=== PATIENT | female | born 1960 | race Caucasian/White ===

== ENCOUNTER → 2016-12-12 | Outpatient (CLI) | payer OTHER ==
[~2016-12-12] MED LIST: ASCA500 PO; B-CO1CAP3 PO; BIOTCAP2 PO; CALC-478 PO; CLR10 PO; GLUCTAB7 PO; MULT-506 PO; PSEU30TA20 PO; TURM1CAP4 PO
--- NOTE | 2016-12-12 09:29 | DIAGNOSTIC IMAGING REPORT ---
RIGHT FOOT MIN 3 VIEWS CLINICAL HISTORY: Right foot cyst. Right foot pain. COMPARISON: None. TECHNIQUE: Standing AP, oblique and lateral radiographs of the right foot were obtained. A BB was placed at site of cyst. FINDINGS: The tarsometatarsal joints are intact. No fracture or suspicious lesion is identified on this examination. No erosions are identified. There is no bony destruction. There is an equivocal 6 mm round density which could reflect the palpable abnormality. This is suboptimally assessed by radiography. IMPRESSION: No osseous lesion identified. No bony destruction. Equivocal 6 mm round density at site of palpable abnormality. This could reflect normal soft tissue or the palpable abnormality which is difficult to assess by radiography. Electronically signed by: Feliz Barraza M.D. 12/12/2016 9:27 AM Dictated Date/Time: 12/12/2016 9:15 AM
== END | disposition home or self-care (01) ==
LOC: C.RDSM 11:35
PROVIDERS: ATTEND Podiatrist
DX: M79.671 Pain in right foot (principal)

== ENCOUNTER → 2016-12-28 | Day surgery (SDC) | payer OTHER ==
[2016-12-14 13:32] VITALS: Ht 175.3 cm; Wt 68.2 kg
[~2016-12-28] VITALS: Ht 175.3 cm; Wt 68.2 kg
[~2016-12-28] MED LIST changes: +ATROPINE SULFATE 0.1 MG/ML 5ML SYR IV PRN; +BUPIVACAINE 0.5 % 5 MG/1 ML MPF 30ML VIAL ONE; +CLINDAMYCIN PHOS 150 MG/ML 2 ML VIAL IV SCH; +DEXAMETHASONE SOD INJ 4 MG/ML VIAL ONE; +EpHEDrine SULFATE INJ 50 MG/ML AMP IV PRN; +FENTANYL CITRATE INJ 50 MCG/1 ML 2 ML VIAL IV PRN; +FENTANYL CITRATE INJ 50 MCG/1 ML 2 ML VIAL ONE; +FLUMAZENIL 0.1 MG/1 ML 10 ML VIAL IV PRN; +LABETALOL HCL IV 5 MG/ML 20ML IV PRN; +LACTATED RINGER'S 1000ML 1,000 ML IV SCH; +LIDOCAINE HCL 1% 20 ML VIAL ONE; +LIDOCAINE HCL 2% 2 ML VIAL (20MG/ML) ONE; +MEPERIDINE HCL 25 MG/ML CARP IV PRN; +METOCLOPRAMIDE HCL INJ 5 MG/ML 2 ML VIAL IV PRN; +MIDAZOLAM HCL 1 MG/ML 2ML VIAL ONE; +NALOXONE HCL 0.4 MG/1 ML VIAL/CARP IV PRN; +ONDANSETRON INJ 2 MG/ML 2 ML VIAL IV PRN; +ONDANSETRON INJ 2 MG/ML 2 ML VIAL ONE; +PHENYLEPHRINE 100MCG/ML 5ML SYR IV PRN; +PROPOFOL IV EMULSION 10 MG/ML 20 ML VIAL IV ONE; +SODIUM CHLORIDE 0.9% 1000ML 1,000 ML IV SCH
--- NOTE | 2016-12-28 11:20 | History & Physical Bridge - [place] ---
H&P Re-Evaluation Bridge Note: I have examined the patient, reviewed the History & Physical and in the interval since the performance of the History & Physical I have noted the following changes of clinical significance: No changes noted right 4th digit lesion excision and arthroplasty
--- NOTE | 2016-12-28 12:28 | Discharge Instructions-SurgCtr ---
Discharge Instructions Date of Service Dec 28, 2016. Visit Reason for Visit: Right Foot Ganglion Cyst, Hammertoes Discharge Discharge Diagnosis / Problem: right 4th digit lesion, hammertoe Discharge Goals Goal(s): Decrease discomfort, Improve function Activity Recommendations Activity Limitations: as noted below (limited weightbearing using the surgical shoe until follow up) Lifting Limitations: no more than 5 pounds Exercise/Sports Limitations: none Shower/Bathe: keep incision dry Driving or Machine Use: after follow up appointment Weightbearing Status: Right weightbearing (as tolerated) Anesthesia . Post Anesthesia Instructions: If you have had General Anesthesia or IV Sedation: * Do not drive today. * Resume driving when surgeon permits. * Do not make important decisions or sign legal documents today. * Call surgeon for: 1. Temperature elevations greater than 101 degrees F. 2. Uncontrollable pain. 3. Excessive bleeding. 4. Persistent nausea and vomiting. 5. Medication intolerance (nausea, vomiting or rash). * For nausea and vomiting use only clear liquids such as: tea, soda, bouillon until nausea subsides, then gradually increase diet as tolerated. * If you have any concerns or questions, call your surgeon's office. If physician is unavailable and it is an emergency, call 911 or go to the nearest emergency room. . Instructions / Follow-Up Instructions / Follow-Up keep foot and dressings clean, dry and intact elevate right foot as needed ice right foot as needed take pain medication as prescribed Diet Recommendations Home Diet: no limitations Procedures Procedures Performed: Right 4th Toe Cyst Excision And Proximal Interphalangeal Joint Arthroplasty Pending Studies Studies pending at discharge: no Medical Emergencies . Who to Call and When: Medical Emergencies: If at any time you feel your situation is an emergency, please call 911 immediately. . Non-Emergent Contact Non-Emergency issues call your: Surgeon (please call [phone] with questions of concerns over the weekend) Call Non-Emergent contact if: temperature is above 101.5 . . "Provider Documentation" section prepared by Carol Lovelace. . [place] Drug Monitoring Program Search Results: patient reviewed within database, no issues identified ( tramadol prescription given to patient)
--- NOTE | 2016-12-28 12:31 | [facility] Post Operative Brief Note ---
Immediate Operative Summary Operative Date Dec 28, 2016. Pre-Operative Diagnosis Right 4th Toe Cyst and Hammertoe Post-Operative Diagnosis Same Procedure(s) Performed Right 4th Toe Cyst Excision And Proximal Interphalangeal Joint Arthroplasty Surgeon Dr. Alvarez Type Copyist Surgeon(s) None Estimated Blood Loss 0 mL Findings bone and lesion/cyst right 4th digit Specimens A. Cyst and Bone Right 4th Toe Drains none Anesthesia local iv sedation Complication(s) None Disposition Recovery Room / PACU stable
[2016-12-28 13:18] VITALS: TEMP 36.3
--- NOTE | 2016-12-28 13:20 | Anesthesia Progress Nt - [facility] ---
Anesthesia Post Op Note Date & Time Dec 28, 2016 at 13:20 Vital Signs Pain Intensity: 0 Vital Signs Past 12 Hours Date Time Temp Pulse Resp B/P (MAP) Pulse Ox O2 Delivery O2 Flow Rate FiO2 12/28/16 13:18 36.3 68 16 111/71 (84) 100 Room Air 12/28/16 13:09 36.6 12/28/16 13:06 73 15 12/28/16 13:06 72 15 99/65 (81) 99 12/28/16 13:01 71 16 104/72 (84) 97 12/28/16 13:01 72 16 12/28/16 12:56 75 17 12/28/16 12:56 74 17 109/65 (88) 100 12/28/16 12:55 Room Air 12/28/16 12:51 87 18 100 12/28/16 12:51 79 18 12/28/16 12:50 98/69 (80) 12/28/16 12:46 13 12/28/16 12:46 75 13 91/67 (81) 12/28/16 12:41 72 20 12/28/16 12:41 72 20 113/66 (73) 100 12/28/16 12:36 75 17 92/72 (76) 100 12/28/16 12:36 74 17 12/28/16 12:31 67 16 100 12/28/16 12:31 66 16 12/28/16 12:30 112/76 (83) 12/28/16 12:30 120/72 (89) 12/28/16 12:26 36.1 67 16 112/76 100 Diffusion Mask 5 12/28/16 11:04 36.8 79 16 111/78 (89) 99 Room Air Notes Mental Status: alert / awake / arousable, participated in evaluation Pt Amnestic to Procedure: Yes Nausea / Vomiting: adequately controlled Pain: adequately controlled Airway Patency, RR, SpO2: stable & adequate BP & HR: stable & adequate Hydration State: stable & adequate Anesthetic Complications: no major complications apparent
[2016-12-28 13:33] VITALS: BP 116/75; PULSE 65; O2SAT 100
--- NOTE | 2016-12-28 13:44 | OPERATIVE REPORT ---
DATE OF OPERATION: 12/28/2016 PREOPERATIVE DIAGNOSIS: Painful right fourth toe mass or lesion and hammertoe deformity. POSTOPERATIVE DIAGNOSIS: Same. PROCEDURE: Right fourth toe lesion or mass excision with arthroplasty, resection of head of the proximal phalanx. SURGEON: Carol Alvarez DPM. BLOOD LOSS: 0. HEMOSTASIS: Pneumatic ankle tourniquet at 250 mmHg. PROCEDURE FOLLOWS: The patient was brought to the operating room and placed in the supine position. The right lower extremity was prepped and draped in the usual sterile manner. A 1:1 mixture of 1% lidocaine plain and 0.5% Marcaine was utilized to anesthetize the right fourth digit in the right fourth digit in a ring block. At that point anesthesia was induced, a timeout was taken and the procedure began. A bilobed flap was made for excision of the cyst/lesion or mass that was present on the medial aspect of the right 4th toe and again the bilobed incision allowed complete excision of the mass and also allowed adequate exposure to the proximal phalanx head. There was discussion with the patient that the cyst will usually communicate with the joint and o mass was excised in toto and sent to pathology for permanent specimen. On x-ray this cyst was exactly parallel to the joint, so the cyst was communicating with the joint, and otherwise would have a higher rater of re-occurrence if the joint was not also addressed. There was no abnormality to the underlying skin or the soft tissue, normal appearance of the bone, with arthritic changes at the proximal interphalangeal joint. The mass contained a gelatinous clear fluid that was consistent with a mucoid/mucus cyst or synovial cyst and again it was excised and sent to pathology. After being excised the area was flushed with copious amounts of normal saline. Next, the head of the phalanx was dissected free of soft tissue attachments with transection of the extensor digitorum longus tendon. The head of the proximal phalanx was exposed and a small portion of it was resected utilizing the sagittal saw. The area was then flushed with copious amounts of normal saline. At this point, any redundant bone that was present was resected utilizing the bone cutting rongeurs and again flushed with copious amounts of normal saline. The long extensor tendon then was reattached utilizing 3-0 Vicryl and the skin was reattached utilizing 2-0 nylon. In this rotational bilobed flap the middle lobe , the larger of the 2 lobes, was placed over the excised area where the mass was present. The smaller of the 2 lobes was placed over the site where the larger of the 2 lobes was placed and the remaining skin edges were then sutured together. Compressive and corrective dressings were applied. The tourniquet was deflated. The patient had good hemodynamic response noted to the right fourth digit. She was taken to the recovery room with all vital signs stable and intact. She will follow up with me in the office in 1 week. She was made aware of all risks and benefits of the procedure and signed consent. Mainly the patient had problems wearing shoe gear due to the size and location of the cyst and also because of its growing size, biopsy was warranted and again she signed consent and will follow up with me in the office in 1 week. I attest to the content of the Intraoperative Record and any orders documented therein. Any exceptions are noted below. KIMBERLY
== END | disposition home or self-care (01) ==
LOC: X.SURG 10:22
PROVIDERS: ATTEND Podiatrist
DX: M85.471 Solitary bone cyst, right ankle and foot (principal); M20.41 Other hammer toe(s) (acquired), right foot; Z80.3 Family history of malignant neoplasm of breast; Z82.61 Family history of arthritis; Z82.5 Family history of asthma and other chronic lower respiratory diseases; Z82.49 Family history of ischemic heart disease and other diseases of the circulatory system; Z90.89 Acquired absence of other organs; M19.90 Unspecified osteoarthritis, unspecified site

== ENCOUNTER → 2017-01-09 | Outpatient (CLI) | payer OTHER ==
[~2017-01-09] MED LIST changes: -ATROPINE SULFATE 0.1 MG/ML 5ML SYR IV PRN; -BUPIVACAINE 0.5 % 5 MG/1 ML MPF 30ML VIAL ONE; -CLINDAMYCIN PHOS 150 MG/ML 2 ML VIAL IV SCH; -DEXAMETHASONE SOD INJ 4 MG/ML VIAL ONE; -EpHEDrine SULFATE INJ 50 MG/ML AMP IV PRN; -FENTANYL CITRATE INJ 50 MCG/1 ML 2 ML VIAL IV PRN; -FENTANYL CITRATE INJ 50 MCG/1 ML 2 ML VIAL ONE; -FLUMAZENIL 0.1 MG/1 ML 10 ML VIAL IV PRN; -LABETALOL HCL IV 5 MG/ML 20ML IV PRN; -LACTATED RINGER'S 1000ML 1,000 ML IV SCH; -LIDOCAINE HCL 1% 20 ML VIAL ONE; -LIDOCAINE HCL 2% 2 ML VIAL (20MG/ML) ONE; -MEPERIDINE HCL 25 MG/ML CARP IV PRN; -METOCLOPRAMIDE HCL INJ 5 MG/ML 2 ML VIAL IV PRN; -MIDAZOLAM HCL 1 MG/ML 2ML VIAL ONE; -NALOXONE HCL 0.4 MG/1 ML VIAL/CARP IV PRN; -ONDANSETRON INJ 2 MG/ML 2 ML VIAL IV PRN; -ONDANSETRON INJ 2 MG/ML 2 ML VIAL ONE; -PHENYLEPHRINE 100MCG/ML 5ML SYR IV PRN; -PROPOFOL IV EMULSION 10 MG/ML 20 ML VIAL IV ONE; -SODIUM CHLORIDE 0.9% 1000ML 1,000 ML IV SCH
== END | disposition home or self-care (01) ==
LOC: C.RDSM 08:56
PROVIDERS: ATTEND Podiatrist
DX: M79.673 Pain in unspecified foot (principal)